=== PATIENT | female | born 1955 | race Caucasian/White ===

== ENCOUNTER 2020-03-10 | Emergency (ER) | payer MEDICARE ==
[~2020-03-10] MED LIST: ADULT ASA81 MG OR; BENAZEPRIL20 M1 PO; LASIX20 MG OR; LOTREL 5/101 CAP OR; METFORMIN500 M2 PO; METOPROLOL SUC200 MG PO; POTASSIUM25 MEQ OR; PRAVASTATIN80 MG PO; SYNTHROID OR; SYNTHROID112 MCG PO; WELLBUTRI1 OR; ZYLOPRIM300 MG PO
[2020-03-10] MEDS ORDERED: OMEPRAZOLE DR20 MG PO (09:51)
[2020-03-10] MEDS ORDERED: SINGLAIR 5 MG CH5 MG PO (09:51)
== END 2020-03-10 10:51 | disposition home or self-care (01) ==
PROC: 0HQLXZZ Repair Left Lower Leg Skin, External Approach (ICD-10-PCS; principal; 2020-03-10)
DX: E11.9 Type 2 diabetes mellitus without complications (principal); I10 Essential (primary) hypertension; E03.9 Hypothyroidism, unspecified; S81.812A Laceration without foreign body, left lower leg, initial encounter; W20.8XXA Other cause of strike by thrown, projected or falling object, initial encounter; Y93.89 Activity, other specified; Y92.002 Bathroom of unspecified non-institutional (private) residence as the place of occurrence of the external cause

== ENCOUNTER 2020-03-19 | Emergency (ER) | payer MEDICARE ==
[~2020-03-19] MED LIST changes: +OMEPRAZOLE DR20 MG PO; +SINGLAIR 5 MG CH5 MG PO
== END 2020-03-19 08:35 | disposition home or self-care (01) ==
DX: S81.812D Laceration without foreign body, left lower leg, subsequent encounter (principal); X58.XXXD Exposure to other specified factors, subsequent encounter; E11.9 Type 2 diabetes mellitus without complications; I10 Essential (primary) hypertension; E03.9 Hypothyroidism, unspecified

== ENCOUNTER 2020-08-08 13:07 | Emergency (ER) | payer MEDICARE ==
[~2020-08-08] VITALS: Ht 160 cm; Wt 90.9 kg
[2020-08-08] MEDS ORDERED: GENTAK0.32 OD (14:30)
[2020-08-08 14:35] VITALS: BP 199/82
--- NOTE | 2020-08-11 16:06 | NUR ---
Patient called for Covid results. Notified patient of negative Covid results. Patient denies any symptoms at this time.
== END 2020-08-08 14:47 | disposition home or self-care (01) ==
LOC: ED 13:07
DX: R09.81 Nasal congestion (principal); H10.9 Unspecified conjunctivitis; E11.9 Type 2 diabetes mellitus without complications; I10 Essential (primary) hypertension; E03.9 Hypothyroidism, unspecified; Z20.828 Contact with and (suspected) exposure to other viral communicable diseases

== ENCOUNTER 2022-09-28 00:38 | Emergency (ER) | payer MEDICARE ==
[~2022-09-28] VITALS: Ht 160 cm; Wt 95.4 kg
[~2022-09-28 00:38] MED LIST changes: +GENTAK0.32 OD
[2022-09-28 01:40] LABS: HEMATOCRIT 41.5 % (37.0-47.0); HEMOGLOBIN 13.9 g/dl (12.0-16.0); IMMATURE GRANULOCYTES 0.4 % (0.0-5.0); MEAN CELL VOLUME 89.1 fL CALC (80.0-100.0); MEAN CORPUSCULAR HGB 29.8 pG CALC (26.0-32.0); MEAN CORPUSCULAR HGB CONC 33.5 g/dL CAL (32.0-36.0); NEUT# 3.47 thou/uL (2.00-7.15); RED BLOOD COUNT 4.66 mill/uL (4.20-5.60); RED CELL DISTRI WIDTH 13.3 % (11.5-15.5)
[2022-09-28 01:51] LABS: ALKALINE PHOSPHATASE 89 u/l (38-126); ANION GAP 10 (6-22 (CALC)); BILIRUBIN, TOTAL 0.2 mg/dL (0.0-1.4); BUN 14 mg/dL (8-23); BUN/CREATININE RATIO 19 (12-20 (CALC)); CARBON DIOXIDE 27 mmol/l (22-30); CHLORIDE 107 mmol/l (95-108); CREATININE 0.7 mg/dL (0.5-1.0); GFR FOR AFR.AMER. > 60 ML/MIN (>=60 (CALC)); GFR OTHER RACES > 60 ML/MIN (>=60 (CALC)); POTASSIUM 4.1 mmol/l (3.5-5.1); SGOT/AST 31 u/l (9-36); SODIUM 140 mmol/l (137-146); TOTAL PROTEIN 6.5 g/dL (6.3-8.2)
[2022-09-28 02:03] LABS: PROTHROMBIN TIME 9.5 SECONDS (9.0-12.5)
[2022-09-28 02:26] LABS: D-DIMER 0.3 mg/L (0.19-0.60)
[2022-09-28 03:08] VITALS: BP 124/67
== END 2022-09-28 03:25 | disposition home or self-care (01) ==
LOC: ED 00:38
PROVIDERS: Emergency Medicine
DX: B34.9 Viral infection, unspecified (principal); I10 Essential (primary) hypertension; E11.9 Type 2 diabetes mellitus without complications; E03.9 Hypothyroidism, unspecified; Z98.84 Bariatric surgery status; Z20.822 Contact with and (suspected) exposure to COVID-19